=== PATIENT | female | born 1975 | race Caucasian/White ===

== ENCOUNTER 2016-08-02 12:01 | Outpatient (CLI) | payer MEDICAID ==
[~2016-08-02] VITALS: Ht 160 cm; Wt 90.9 kg
[2016-08-02 12:38] VITALS: Ht 160 cm; Wt 90.9 kg
[2016-08-02] MEDS ORDERED: PNV11TAB PO (12:39)
[2016-08-02] MEDS ORDERED: OMEG300C3 PO (12:39)
[2016-08-02 13:04] LABS: ADD SCAN DIFF NO
[2016-08-02 13:06] LABS: ADD UMIC NO; URINE BILIRUBIN (Dip) NEGATIVE (NEGATIVE); URINE BLOOD (Dip) NEGATIVE (NEGATIVE); URINE COLOR LT. YELLOW (YELLOW); URINE GLUCOSE (Dip) NEGATIVE (NEGATIVE); URINE KETONES (Dip) TRACE (NEGATIVE); URINE LEUKOCYTE ESTERASE (Dip) NEGATIVE (NEGATIVE); URINE NITRITE (Dip) NEGATIVE (NEGATIVE); URINE TOTAL PROTEIN (Dip) NEGATIVE (NEGATIVE); URINE UROBILINOGEN (Dip) 0.2 E.U./dL (0.1-1.0)
[2016-08-02 13:06] LABS: BASOPHILS % 0.3 % (0.0-2.0); EOSINOPHILS # 0.1 10^3/ul (0.0-0.5); EOSINOPHILS % 1.1 % (0.0-7.0); HEMATOCRIT 30.7 % (37.0-47.0); HEMOGLOBIN 10.3 g/dl (12.0-16.0); LYMPHOCYTES # 1.7 10^3/ul (0.8-2.9); LYMPHOCYTES % 18.4 % (15.0-51.0); MEAN CORPUSCULAR HEMOGLOBIN 27.1 pg (29.0-33.0); MEAN CORPUSCULAR HGB CONC 33.6 g/dl (32.0-37.0); MEAN CORPUSCULAR VOLUME 80.8 fl (82.0-101.0); MEAN PLATELET VOLUME 11.8 fl (7.4-10.4); MONOCYTE # 0.7 10^3/ul (0.3-0.9); MONOCYTES % 8.1 % (0.0-11.0); NEUTROPHIL # 6.4 10^3/ul (1.6-7.5); NEUTROPHILS % 70.5 % (39.0-77.0); PLATELET COUNT 179 10^3/UL (140-415); RED CELL DISTRIBUTION WIDTH 13.2 % (11.5-14.5); WHITE BLOOD COUNT 9.1 10^3/ul (4.8-10.8)
--- NOTE | 2016-08-02 14:54 | QN ---
Documentation Comment OB Triage Pt is a 41yo at 34+1 presenting from clinic for r/o PTL. Pt reports feeling LUQ pain x1 week. Describes pain as sharp, worse at times with walking feeling l Denies N/V, heartburn, constipation, diarrhea, UCs, LOF or VB. Pt has hx of C/S Per Dr. Plascencia's request, plan made to check UA, CBC and to PO hydrate VS 98.7 112/62 74 18 Gen: well appearing, NAD Abd: soft, gravid, NTND FHT: Reactive NST [place]: 2 UCs/80 min A/P: LUQ pain likely 2/2 flatus ->Recommend warm compresses, intake of warm liquids and Gas X prn ->FWB reassuring ->PTL, PPROM and FKC precautions reviewed Pt will f/up in clinic as scheduled in 2wks, sooner in OB triage prn Questions answered to patient's satisfaction ADAM MYERS MD Aug 02, 2016 14:54
== END 2016-08-02 13:59 | disposition home or self-care (01) ==
LOC: OBT 12:01 → L-D 12:02 → OBT 13:59
PROVIDERS: ATTEND Obstetrics & Gynecology
DX: O60.03 Preterm labor without delivery, third trimester (principal); O09.523 Supervision of elderly multigravida, third trimester; Z3A.39 39 weeks gestation of pregnancy
CPT/HCPCS: 36415; 81003; 85025; Z7500; G0463

== ENCOUNTER 2016-08-04 09:09 | Outpatient (CLI) | payer MEDICAID ==
[~2016-08-04] VITALS: Ht 160 cm; Wt 92.0 kg
[~2016-08-04 09:09] MED LIST: OMEG300C3 PO; PNV11TAB PO
[2016-08-04 09:45] VITALS: Ht 160 cm; Wt 92.0 kg
[2016-08-04 09:46] VITALS: BP 112/64; PULSE 70; RESP 20
[2016-08-04 10:09] LABS: ADD UMIC NO; URINE BILIRUBIN (Dip) NEGATIVE (NEGATIVE); URINE BLOOD (Dip) NEGATIVE (NEGATIVE); URINE COLOR LT. YELLOW (YELLOW); URINE GLUCOSE (Dip) NEGATIVE (NEGATIVE); URINE KETONES (Dip) NEGATIVE (NEGATIVE); URINE LEUKOCYTE ESTERASE (Dip) NEGATIVE (NEGATIVE); URINE NITRITE (Dip) NEGATIVE (NEGATIVE); URINE TOTAL PROTEIN (Dip) NEGATIVE (NEGATIVE); URINE UROBILINOGEN (Dip) 0.2 E.U./dL (0.1-1.0)
[2016-08-04 10:56] LABS: ADD SCAN DIFF NO
[2016-08-04 11:04] LABS: POTASSIUM 4.3 mmol/L (3.5-5.1)
[2016-08-04 11:06] LABS: CREATININE 0.6 mg/dl (0.44-1.00)
[2016-08-04 11:07] LABS: ALBUMIN/GLOBULIN RATIO 0.93; BILIRUBIN,INDIRECT 0.1 mg/dl (0-1.1); BILIRUBIN,TOTAL 0.1 mg/dl (0.2-1.3); TOTAL PROTEIN 6.2 g/dl (6.1-8.1)
[2016-08-04 11:08] LABS: CALCIUM 8.3 mg/dl (8.4-10.2)
[2016-08-04 11:32] LABS: BASOPHILS % 0.1 % (0.0-2.0); EOSINOPHILS # 0.1 10^3/ul (0.0-0.5); EOSINOPHILS % 0.8 % (0.0-7.0); HEMATOCRIT 31.2 % (37.0-47.0); HEMOGLOBIN 10.1 g/dl (12.0-16.0); LYMPHOCYTES # 1.5 10^3/ul (0.8-2.9); LYMPHOCYTES % 16.3 % (15.0-51.0); MEAN CORPUSCULAR HEMOGLOBIN 26.6 pg (29.0-33.0); MEAN CORPUSCULAR HGB CONC 32.4 g/dl (32.0-37.0); MEAN CORPUSCULAR VOLUME 82.1 fl (82.0-101.0); MEAN PLATELET VOLUME 12.6 fl (7.4-10.4); MONOCYTE # 0.6 10^3/ul (0.3-0.9); MONOCYTES % 7.1 % (0.0-11.0); NEUTROPHIL # 6.7 10^3/ul (1.6-7.5); NEUTROPHILS % 74.3 % (39.0-77.0); PLATELET COUNT 167 10^3/UL (140-415); RED CELL DISTRIBUTION WIDTH 13.4 % (11.5-14.5)
--- NOTE | 2016-08-04 11:59 | RADRPT ---
PROCEDURE: Abdominal ultrasound CLINICAL INDICATION: Abdominal pain TECHNIQUE: Smith scale and color Doppler sonographic images of the right and left lower quadrants o f the abdomen are obtained. COMPARISON: None FINDINGS: No evidence of mass, fluid collection, or hernia is seen. Appendix is not identified. IMPRESSION: No evidence of mass, fluid collection, lymphadenopathy, or hernia identified in the lower abdominal quadrants. MRI may be useful for further evaluation. RPTAT: AADD .Jourdan Lindquist MD, MD Date Time Electronically viewed and signed by .Jourdan Lindquist MD, MD on 08/04/2016 11:59 .B/
--- NOTE | 2016-08-04 12:00 | RADRPT ---
PROCEDURE: US Abdomen complete. CLINICAL INDICATION: Abdominal pain TECHNIQUE: Multiple real-time longitudinal and transverse images were acquired of the patient's ab domen and retroperitoneum utilizing a curved array transducer. COMPARISON: None FINDINGS: The liver is normal in size and demonstrates normal echogenicity. No focal intrahepatic mass is id entified. The gallbladder is normal in appearance. There is no pericholecystic fluid or gallbladde r wall thickening. No intra or extrahepatic biliary dilatation is seen. The common bile duct measure s mm in maximal dimension. The visualized portions of the pancreas are unremarkable with obscurati on of the tail of the pancreas. The spleen is normal. No free fluid is identified. The right kidney measures 13.7 cm cm in length. The left kidney measures 13:43 cm in length. There is normal echogenicity within the kidneys. There are no perinephric fluid collections. No hydrone phrosis, mass, or calculus is seen. Mild left pelvic fullness which can be normal in a fema le. The aorta and IVC are unremarkable. IMPRESSION: Unremarkable ultrasound of the abdomen. Mild left renal pelvic fullness which can be seen females RPTAT: EE RPTAT: HH .Mali Weber MD, Date Time Electronically viewed and signed by .Mali Weber MD, MD on 08/04/2016 12:00 .M/
--- NOTE | 2016-08-04 12:02 | RADRPT ---
AMENDMENT: 08/04/2016 12:17:26 PM Mali Weber M.D PROCEDURE: US OB. CLINICAL INDICATION: Abdominal pain TECHNIQUE: Pelvic ultrasound performed for biophysical profile. COMPARISON: 05/09/2016 ultrasound FINDINGS: Single intrauterine gestation present with heart rate at 133 beats per minute. Presentation is ceph alic. Placenta is anterior, grade 1. Placental lakes are present within the placenta. Biophysical profile score is 8/8 (breathing=2, movement=2, tone =2, fluid volume=2). Amniotic fluid volume is w ithin normal limits, with DAMIAN = 12.8 cm. Cervical length: 4.8 cm. IMPRESSION: Biophysical profile score 8/8. DAMIAN 12.8 cm. Cervical length: 4.8 cm. PROCEDURE: US OB. CLINICAL INDICATION: Abdominal pain TECHNIQUE: Pelvic ultrasound performed for biophysical profile. COMPARISON: 05/09/2016 ultrasound FINDINGS: Single intrauterine gestation present with heart rate at 133 beats per minute. Presentation is ceph alic. Placenta is anterior, grade 1. Placental lakes are present within the placenta. Biophysical profile score is 8/8 (breathing=2, movement=2, tone =2, fluid volume=2). Amniotic fluid volume is w ithin normal limits, with DAMIAN = 12.8 cm. IMPRESSION: Biophysical profile score 8/8. DAMIAN 12.8 cm. .Mali Weber MD, MD Date Time Electronically viewed and signed by .Mali Weber MD, MD on 08/04/2016 12:18 .M/
--- NOTE | 2016-08-04 12:32 | TRIAGE ---
OB Triage Datetime Report Generated by CPN: 08/04/2016 12:32 Datetime: 08/04/2016 12:12 Labor Evaluation Frequency: NONE Pattern: Normal: <= 5 Contractions in 10 Minutes Heart Rate FHR Baseline Rate: 125 Monitor Mode: External US FHR Baseline Changes: No Baseline Change Variability: Moderate 6-25 bpm Accelerations: 15X15 Decelerations: None Category: Category I Pain Assessment Pain Scale: 4 Pain Presence: Constant Pain Type: Sharp Pain Location: Abdomen Pain Goal: 4 Vaginal Exam Membrane Status: Intact Datetime: 08/04/2016 11:42 Maternal Assessment Level of Consciousness: Fully Conscious DTR's/Clonus: DTRs 2+ Headache: Denies Blurred Vision: No Nausea/Vomiting: Denies RUQ Epigastric Pain: Denies Facial Edema: None Labor Evaluation Frequency: NONE AT THIS TIME Pattern: Normal: <= 5 Contractions in 10 Minutes Heart Rate FHR Baseline Rate: 125 Monitor Mode: External US FHR Baseline Changes: No Baseline Change Variability: Moderate 6-25 bpm Accelerations: 15X15 Decelerations: None Category: Category I Pain Assessment Pain Scale: 3 Pain Presence: Constant Pain Type: Sharp Pain Location: Other Pain Goal: 6 Vaginal Exam Membrane Status: Intact Datetime: 08/04/2016 09:49 Time of Arrival: 08/04/2016 09:08 EGA: 34.3 Arrived By: Ambulatory Arrived From: Home Chief Complaint: LEFT SIDE ABD PAIN Movement: Present Contractions: Denies/Absent Contractions: NONE Rupture of Membranes: Denies Vaginal Bleeding: None Vaginal Discharge: Denies Recent Sexual Intercouse: Denies Abdominal Trauma: Not Applicable Patient Complaints: Other Time Provider Notified: 08/04/2016 09:49 Provider Notified: DR SANTIAGO Initial Plan: EFM,CALL DR SANTIAGO Datetime: 08/04/2016 09:48 Maternal Assessment Level of Consciousness: Fully Conscious DTR's/Clonus: DTRs 2+; No Clonus Headache: Denies Blurred Vision: No Respiratory Effort: Unlabored; Regular Rhythm; Equal Expansion Breath Sounds, Left: Clear and Equal Breath Sounds, Right: Clear and Equal Nausea/Vomiting: Denies RUQ Epigastric Pain: Denies Facial Edema: None Temperature Route: Axillary Fall Risk Assessment History of Falling: (0) No Secondary Diagnosis: (0) No Ambulatory Aid: (0) Bedrest/Nurse Assist IV Therapy: (0) No Gait: (0) Normal/Bedrest/Immobile Mental Status: (0) Oriented to Own Ability Fall Score: 0 Fall Risk Score Definition: No Risk: No action required Datetime: 08/02/2016 13:43 Stage of : OB Triage Datetime: 08/02/2016 13:35 Labor Evaluation Frequency: 1/HR Monitor Mode: External Duration (sec)2399: 60 Quality: Mild Pattern: Normal: <= 5 Contractions in 10 Minutes Resting Tone [place]: Relaxed Heart Rate FHR Baseline Rate: 130 Monitor Mode: External US Variability: Moderate 6-25 bpm Accelerations: 15X15 Decelerations: None Category: Category I Datetime: 08/02/2016 12:43 Stage of : OB Triage Datetime: 08/02/2016 12:35 Stage of : OB Triage Assessment Type: Triage Maternal Assessment Level of Consciousness: Fully Conscious DTR's/Clonus: DTRs 2+; No Clonus Headache: Denies Blurred Vision: No Respiratory Effort: Unlabored; Regular Rhythm; Equal Expansion Breath Sounds, Left: Clear and Equal Breath Sounds, Right: Clear and Equal Nausea/Vomiting: Denies RUQ Epigastric Pain: Denies Lower Extremities Edema: None Degree: None Upper Extremities Edema: None Degree: None Facial Edema: None Temperature Route: Axillary Fall Risk Assessment History of Falling: (0) No Secondary Diagnosis: (0) No Ambulatory Aid: (0) Bedrest/Nurse Assist IV Therapy: (0) No Gait: (0) Normal/Bedrest/Immobile Mental Status: (0) Oriented to Own Ability Fall Score: 0 Fall Risk Score Definition: No Risk: No action required Labor Evaluation Frequency: 0 Monitor Mode: External Resting Tone [place]: Relaxed Heart Rate FHR Baseline Rate: 125 Monitor Mode: External US Variability: Moderate 6-25 bpm Accelerations: 10X10 Decelerations: None Category: Category I Pain Assessment Pain Scale: 4 Pain Presence: Constant Pain Type: Sharp Pain Location: Abdomen Pain Goal: 3 Pain Relief Measures: Comfort Measures Datetime: 08/02/2016 12:32 Time of Arrival: 08/02/2016 11:53 EGA: 34.1 Arrived By: Ambulatory Arrived From: Office Chief Complaint: C/O LEFT SIDE LOWER ABDOMINAL PAIN OVER A WEEK. DENIES BLEEDING OR LEAKING OF FL UID. Movement: Present Contractions: Denies/Absent Rupture of Membranes: Denies Vaginal Bleeding: None Vaginal Discharge: Denies Recent Sexual Intercouse: Yes Patient Complaints: Cramping Time Provider Notified: 08/02/2016 12:43 Provider Notified: JACK Initial Plan: MONITOR, U/A, PO HYDRATE, CBC
--- NOTE | 2016-08-04 12:33 | QN ---
Documentation Comment 34+wks GA with 2 weeks LLQ abdominal pain NST reactive BPP 12/17 CXL 4.8cm Abd soft NT ND Abdominal ultrasound WNL Labs WNL --->discharged with precautions --->questions answered --->F/u with PMD KENDRA BANERJEE M.D. Aug 04, 2016 12:33
== END 2016-08-04 12:39 | disposition home or self-care (01) ==
LOC: OBT 09:09 → L-D 09:09 → OBT 12:39
PROVIDERS: ATTEND Obstetrics & Gynecology
DX: O26.893 Other specified pregnancy related conditions, third trimester (principal); R10.32 Left lower quadrant pain; O09.523 Supervision of elderly multigravida, third trimester; Z3A.34 34 weeks gestation of pregnancy
CPT/HCPCS: 36415; 76700; 76817; 76818; 76856; 80053; 81003; 85025; Z7500; G0463